=== PATIENT | female | born 1980 | race Hispanic/Latino ===

== ENCOUNTER 2018-07-15 08:42 | Emergency (ER) | payer OTHER | END 2018-07-15 10:36 | disposition home or self-care (01) | LOC: EDH 08:42 | DX: M54.5 Low back pain (principal); Z90.49 Acquired absence of other specified parts of digestive tract; Z72.0 Tobacco use ==

== ENCOUNTER 2018-12-26 19:01 | Emergency (ER) | payer OTHER | END 2018-12-26 19:34 | disposition home or self-care (01) | LOC: EDH 19:01 | DX: R42 Dizziness and giddiness (principal); R51 Headache; E11.9 Type 2 diabetes mellitus without complications; Z90.49 Acquired absence of other specified parts of digestive tract; Z98.51 Tubal ligation status; Z72.0 Tobacco use | CPT/HCPCS: 82948 ==

== ENCOUNTER 2019-09-23 18:21 | Inpatient (IN) | payer BC, MEDICAID ==
[~2019-09-23] VITALS: Ht 157.5 cm; Wt 49.0 kg
[2019-09-23] MEDS ORDERED: MORPHINE SULFATE 2 MG/ML 1ML SYG ONE ×2 (18:52→21:56)
[2019-09-23] MEDS ORDERED: ONDANSETRON ODT 4 MG TAB ONE (19:16)
[2019-09-23 19:24] LABS: BASOPHILS % (AUTO) 0.2 % (0.0-5.0); EOSINOPHILS % (AUTO) 0.2 % (0.0-8.0); HEMATOCRIT 22.2 % (36-48); LYMPHOCYTES % (AUTO) 21.8 % (21.0-51.0); MEAN CORPUSCULAR HEMOGLOBIN 22.8 pg (27.0-33.0); MEAN CORPUSCULAR HGB CONC 31.1 g/dL (32.0-36.0); MEAN CORPUSCULAR VOLUME 73.5 fL (79-99); MONOCYTES % (AUTO) 12.2 % (3.0-13.0); NEUTROPHILS % (AUTO) 65.3 % (40.0-77.0); PLATELET COUNT (AUTO) 488 K/uL (130-400); RED BLOOD CELL COUNT(AUTO) 3.02 MIL/uL (4.00-5.50); RED CELL DISTRIBUTION WIDTH 22.6 % (11.0-15.5)
[2019-09-23 19:30] LABS: APPEARANCE,URINE Cloudy (CLEAR); BILIRUBIN,URINE Negative (NEGATIVE); COLOR,URINE Yellow (YELLOW); GLUCOSE, URINE (UA) Negative (NEGATIVE); KETONES,URINE Negative (NEGATIVE); LEUKOCYTE ESTERASE ,URINE Moderate (NEGATIVE); NITRATE,URINE Negative (NEGATIVE); OCCULT BLOOD,URINE Negative (NEGATIVE); PROTEIN,URINE POS 1+ mg/dL (NEGATIVE); UROBILINOGEN,URINE 0.2 mg/dL (0.2-1.0)
[2019-09-23 19:31] LABS: CREATININE 0.8 mg/dL (0.5-1.5); POTASSIUM 3.9 mmol/L (3.5-5.1)
[2019-09-23 19:35] LABS: ALBUMIN 1.4 g/dL (3.5-5.0); BILIRUBIN,TOTAL 0.2 mg/dL (0.2-1.0); TOTAL PROTEIN, SERUM 7.4 g/dL (6.0-8.3)
[2019-09-23 19:40] LABS: INR 1.17 (0.85-1.15); PARTIAL THROMBOPLASTIN TIME 51.3 SEC (26.3-35.5); PROTHROMBIN TIME 12.2 SEC (9.6-11.6)
[2019-09-23 19:44] LABS: RBC,URINE 0-1 /HPF (0-1)
[2019-09-23 19:45] LABS: BACTERIA,URINE Few /HPF (None Seen); MUCUS,URINE Few LPF (None Seen); SQUAMOUS EPITHELIAL CELL,UR Few /HPF (0-2)
[2019-09-23] MEDS ORDERED: ACETAMINOPHEN EXTRA STRENGTH 500 MG TABLET ONE (19:46)
[2019-09-23] MEDS ORDERED: SODIUM CHLORIDE 0.9% 1000ML 1,000 ML IV ONE ×3 (19:59→23:37)
[2019-09-23] MEDS: ZOSYN 3.375GM+NS 50ML 50 ML IV SCH (21:33)
[2019-09-23] MEDS: SODIUM CHLORIDE 0.9% 1000ML 1,000 ML IV SCH (21:45)
[2019-09-23] MEDS ORDERED: ZOSYN 3.375GM+NS 50ML 50 ML IV ONE (21:56)
[2019-09-24] MEDS ORDERED: MORPHINE SULFATE 2 MG/ML 1ML SYG ONE (02:21)
[2019-09-24] MEDS ORDERED: ONDANSETRON HCL 4 MG/2 ML VIAL ONE (03:10)
[2019-09-24 05:00] VITALS: BP 106/73
[2019-09-24] MEDS: MORPHINE SULFATE 2 MG/ML 1ML SYG IVP PRN ×2 (06:36→10:28)
[2019-09-24] MEDS: ZOSYN 3.375GM+NS 50ML 50 ML IV SCH ×3 (07:24→20:08)
[2019-09-24 07:47] VITALS: BP 105/63
[2019-09-24] MEDS: SODIUM CHLORIDE 0.9% 1000ML 1,000 ML IV SCH ×2 (08:47→18:43)
[2019-09-24] MEDS: ACETAMINOPHEN 325 MG TAB PO PRN ×2 (08:50→16:30)
[2019-09-24] MEDS: ONDANSETRON HCL 4 MG/2 ML VIAL IVP PRN ×3 (10:32→21:06)
[2019-09-24 11:05] VITALS: BP 102/67
[2019-09-24 12:29] LABS: HEMATOCRIT 27.5 % (36-48)
[2019-09-24] MEDS ORDERED: PHARMACY COMMUNICATION MISC SCH (12:30)
--- NOTE | 2019-09-24 12:40 | NUR ---
Nutrition Intervention: Nutrition consult due to admission trigger. Pt. reports has Stg 4 Cervical Cancer and is receiving chemotherapy. Pt. states has lost 43#(29% of UBW) in 1 year due to decreased appetite. Pt. on Regular diet. Pt. reports p.o. intake varies. Spoke with pt. regarding supplementation with Ensure and pt. agreed to try. Labs reviewed(Alb 1.4, BG 83, Na 129). LBM: 09/24/2019, per pt. SR-21, elastic. Pt. educated on High Calorie High Protein diet and provided with education material. Pt. verbalized understanding. Recommendations: 1) Rec. Van. or [place] Ensure BID with B'fast and dinner meals. 2) High Calorie High protein diet education given to patient. 3) Continue to monitor pt's nutritional status. 4) Consult RD as nutrition concerns arise. Addendum: 09/24/19 at [address] Amended: Links added.
[2019-09-24] MEDS ORDERED: COMPOUND PO MISCELLANEOUS 1 EACH MISC MISC PRN (12:45)
[2019-09-24] MEDS: MAG HYDROX/AL HYDROX/SIMETH 30 ML, LIDOCAINE HCL 2% VISCOUS 30 ML, DIPHENHYDRAMINE HCL ... PO PRN ×6 (13:05→17:38)
[2019-09-24] MEDS: HYDROMORPHONE 1 MG/1 ML AMP IVP PRN ×3 (14:50→22:34)
[2019-09-24 16:22] VITALS: BP 112/74
--- NOTE | 2019-09-24 17:20 | NUR ---
INITIAL Patient lives with father, step mother and patient's 18 year old daughter. Emergency contact is father, Jovany Leone, [phone]. No home health but does have PHC with [facility] 24 1/2 hours a week. Father is her provider. Patient has no DME. Patient needs help with ADL's and does not drive. PCP is Dr. Francisco Bella. [facility] [place]. DCP is home. Addendum: 09/24/19 at 1723 by LESLIE SALAS SS Amended: Links added.
[2019-09-24 20:00] VITALS: BP 111/66
[2019-09-25] VITALS (7 sets, daily range): BP systolic 93–120; BP diastolic 61–78
[2019-09-25] MEDS: ACETAMINOPHEN 325 MG TAB PO PRN (00:13)
--- NOTE | 2019-09-25 00:35 | NUR ---
TEMP 103.0 DR. GABRIEL WAS NOTIFIED REGARDING PATIENT'S SPIKE IN TEMPERATURE. 103.0. NEW ORDERS RECEIVED, SEE ORDER HISTORY FOR DETAILS.
[2019-09-25] MEDS ORDERED: VANCOMYCIN 1GM+NS 250ML 250 ML IV SCH (00:45)
[2019-09-25] MEDS ORDERED: VANCOMYCIN PROTOCOL PER PHARMACY IV SCH (01:15)
[2019-09-25] MEDS: HYDROMORPHONE 1 MG/1 ML AMP IVP PRN ×5 (02:36→20:50)
[2019-09-25] MEDS: ZOSYN 3.375GM+NS 50ML 50 ML IV SCH ×3 (05:13→20:48)
[2019-09-25] MEDS: SODIUM CHLORIDE 0.9% 1000ML 1,000 ML IV SCH ×3 (05:14→23:19)
[2019-09-25] MEDS ORDERED: COMPOUND IV REFRIGERATED 1 EACH IVSOLN MISC PRN (06:30)
[2019-09-25] MEDS ORDERED: HYDROMORPHONE 1 MG/1 ML AMP IVP SCH (09:00)
[2019-09-25] MEDS: VANCOMYCIN 750MG + NS 250 ML IV SCH ×4 (09:22→20:48)
[2019-09-25] MEDS: ONDANSETRON HCL 4 MG/2 ML VIAL IVP PRN (11:04)
[2019-09-25] MEDS: METHYLPREDNISOLONE SOD SUCC 40MG/ML 1ML IVP SCH (14:28)
[2019-09-26] MEDS: HYDROMORPHONE 1 MG/1 ML AMP IVP PRN ×6 (01:21→22:25)
[2019-09-26 03:29] VITALS: BP 98/49
[2019-09-26] MEDS: ZOSYN 3.375GM+NS 50ML 50 ML IV SCH ×3 (05:31→21:28)
[2019-09-26 08:00] VITALS: BP 104/60
[2019-09-26] MEDS: SODIUM CHLORIDE 0.9% 1000ML 1,000 ML IV SCH (08:13)
[2019-09-26] MEDS: VANCOMYCIN 750MG + NS 250 ML IV SCH ×4 (08:13→21:30)
[2019-09-26 11:38] VITALS: BP 132/65
[2019-09-26] MEDS: METHYLPREDNISOLONE SOD SUCC 40MG/ML 1ML IVP SCH (13:44)
[2019-09-26 15:46] VITALS: BP 111/64
[2019-09-26] MEDS: ONDANSETRON HCL 4 MG/2 ML VIAL IVP PRN (17:43)
[2019-09-26 19:41] VITALS: BP 106/70
[2019-09-26 23:33] VITALS: BP 98/67
[2019-09-26] MEDS: DIPHENHYDRAMINE HCL 25 MG CAPSULE PO PRN (23:47)
[2019-09-27] MEDS: HYDROMORPHONE 1 MG/1 ML AMP IVP PRN ×5 (03:09→21:07)
[2019-09-27] MEDS: ZOSYN 3.375GM+NS 50ML 50 ML IV SCH ×3 (03:10→20:28)
[2019-09-27 03:30] VITALS: BP 107/77
[2019-09-27] MEDS: SODIUM CHLORIDE 0.9% 1000ML 1,000 ML IV SCH ×2 (06:46→16:39)
[2019-09-27] MEDS: ONDANSETRON HCL 4 MG/2 ML VIAL IVP PRN ×2 (08:47→12:36)
[2019-09-27] MEDS: VANCOMYCIN 750MG + NS 250 ML IV SCH ×4 (08:47→21:48)
[2019-09-27 09:00] VITALS: BP 107/69
[2019-09-27 11:45] VITALS: BP 114/66
[2019-09-27] MEDS: METHYLPREDNISOLONE SOD SUCC 40MG/ML 1ML IVP SCH (12:36)
[2019-09-27 16:11] VITALS: BP 120/80
[2019-09-27 20:49] VITALS: BP 108/75
[2019-09-27] MEDS: DIPHENHYDRAMINE HCL 25 MG CAPSULE PO PRN (21:07)
[2019-09-28 00:23] VITALS: BP 117/74
[2019-09-28] MEDS: HYDROMORPHONE 1 MG/1 ML AMP IVP PRN ×8 (01:23→23:44)
[2019-09-28 04:47] VITALS: BP 121/77
[2019-09-28] MEDS: ZOSYN 3.375GM+NS 50ML 50 ML IV SCH ×3 (05:33→21:25)
[2019-09-28] MEDS: ONDANSETRON HCL 4 MG/2 ML VIAL IVP PRN (05:39)
[2019-09-28 08:00] VITALS: BP 117/75
[2019-09-28] MEDS: VANCOMYCIN 1GM+NS 250ML 250 ML IV SCH ×2 (09:37→21:24)
[2019-09-28 11:56] VITALS: BP 118/90
[2019-09-28] MEDS ORDERED: HYDROMORPHONE HCL 2 MG/ML VIAL IVP PRN (12:45)
[2019-09-28] MEDS: METHYLPREDNISOLONE SOD SUCC 40MG/ML 1ML IVP SCH (12:50)
[2019-09-28 16:00] VITALS: BP 124/69
[2019-09-28 20:00] VITALS: BP 99/74
[2019-09-28] MEDS: SODIUM CHLORIDE 0.9% 1000ML 1,000 ML IV SCH (21:24)
[2019-09-28] MEDS: DIPHENHYDRAMINE HCL 25 MG CAPSULE PO PRN (23:43)
[2019-09-29] VITALS: BP 106/65
[2019-09-29] MEDS: ONDANSETRON HCL 4 MG/2 ML VIAL IVP PRN (01:25)
[2019-09-29] MEDS: HYDROMORPHONE 1 MG/1 ML AMP IVP PRN ×9 (02:37→19:55)
[2019-09-29 04:00] VITALS: BP 102/66
[2019-09-29] MEDS: DIPHENHYDRAMINE HCL 25 MG CAPSULE PO PRN ×3 (04:50→12:42)
[2019-09-29 08:00] VITALS: BP 118/79
[2019-09-29] MEDS: SODIUM CHLORIDE 0.9% 1000ML 1,000 ML IV SCH (08:36)
[2019-09-29] MEDS ORDERED: MORPHINE SULFATE 15 MG TABLET.SA PO SCH (10:00)
--- NOTE | 2019-09-29 10:49 | NUR ---
HAD NOTIFIED RAMESH REGARDING PAITENT C/O OF PAIN WITHIN 30 MIN OF DILAUDED 2MG PRN DOSE AND PER PATIENT STATES PAIN MED STILL IS NOT WORKING FOR HER. PER MD ADD MSCONT 30MG PO Q 12 WITH FIRST DOSE NOW . WILL OCNT TO MONITOR
[2019-09-29 12:00] VITALS: BP 108/75
[2019-09-29] MEDS: METHYLPREDNISOLONE SOD SUCC 40MG/ML 1ML IVP SCH (12:42)
--- NOTE | 2019-09-29 14:55 | NUR ---
PALLIATIVE CARE CONSULT Beata spoke to pt regarding Dr Fregoso request for Dr Martinez to see pt. Sw educated pt on Dr Martinez's role and she is agreeable to meeting with him. Pt states she is in an indescribable amount of pain to back and leg. Pt states she knows her cervical cancer has spread to her lungs, but states she really does not know much about her cancer. I want him to tell me what is really going on. dr Martinez to meet with pt at 4 today.
--- NOTE | 2019-09-29 15:47 | NUR ---
[facility] FOLLOW UP MALNUTRITION NUTRITION EDUCATION COMPLETED ON 09/23. PT IS TOLERATING PO AND IS DRINKING 100% ENSURE. SKIN IS INTACT. LABS REVIEWED. MEDS REVIEWED. CONTINUE CURRENT DIET AND ORAL SUPPLEMENTS MONITOR WEIGHT CHANGES AND PO INTAKE Addendum: 09/29/19 at [address] Amended: Links added.
[2019-09-29 16:00] VITALS: BP 105/63
--- NOTE | 2019-09-29 17:30 | NUR ---
DR HANNA Sw present when Dr Hanna met with pt and her family at bedside. Pt consented to discussion with family present. Dr Hanna [place] [facility] [place] [facility] [place] and explained to pt and family about the cancer pt has, the size of her tumors and current condition. Dr Hanna explained pt's 2 options treatment vs hospice. Pt has not had treatment with Dr Giraldo and Dr Hanna strongly encouraged pt and family to have a conversation with Dr Giraldo regarding a treatment plan. Dr Hanna stressed to everyone, the importance of pt's compliance with treatment, MD visits, and remaining drug free. dr Hanna discussed danger of mixing street drugs and alcohol with chemo and pain medication. 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 Pt wants to continue treatment if dr Giraldo feels there is an option for treatment. Dr Hanna made changes to pain medication and discussed changes with nurse Rubio. Beata to follow and assist as needed
[2019-09-29] MEDS: SENNOSIDES 8.6 MG TABLET PO SCH (19:54)
[2019-09-29] MEDS: LACTULOSE 20 GM/30 ML UDCUP PO PRN (19:56)
[2019-09-29 20:00] VITALS: BP 100/65
[2019-09-29] MEDS: MORPHINE SULFATE 15 MG TABLET.SA PO SCH (22:23)
[2019-09-30] VITALS: BP 106/66
[2019-09-30] MEDS: HYDROMORPHONE 1 MG/1 ML AMP IVP PRN ×7 (01:23→20:44)
[2019-09-30] MEDS: MORPHINE SULFATE IR 15 MG TAB 15 MG TABLET PO PRN ×4 (03:05→23:48)
[2019-09-30 04:00] VITALS: BP 135/93
[2019-09-30] MEDS: SODIUM CHLORIDE 0.9% 1000ML 1,000 ML IV SCH ×2 (05:40→17:34)
[2019-09-30] MEDS: MORPHINE SULFATE 15 MG TABLET.SA PO SCH ×3 (06:54→22:22)
[2019-09-30 08:14] VITALS: BP 117/69
[2019-09-30] MEDS: ONDANSETRON HCL 4 MG/2 ML VIAL IVP PRN (09:28)
[2019-09-30] MEDS: LACTULOSE 20 GM/30 ML UDCUP PO PRN (09:28)
[2019-09-30] MEDS: SENNOSIDES 8.6 MG TABLET PO SCH ×2 (09:28→20:39)
--- NOTE | 2019-09-30 10:33 | NUR ---
Dr Martinez f/u Sw visited with pt this am who was in bathroom and you could hear her crying and yelling from pain. Pt came out of bathroom and I helped her to bed. Pt crying and saying the pain was unbearable. Pt stated she wanted to throw up, SW provided her with dish to use and place wet rag on back of her neck to cool her. Pt with dry heaving. Sw called nurse Marlys who was getting pain medication for pt. Pt now lying in bed crying and moaning of pain. Sw recd call from Dr Martinez who was following up on pt. Informed him of above. Dr Martinez to come by. Dr Martinez arrived and spoke to pt regarding medications given last night and pain at this time. Pt crying and anxious. Dr Martinez made changes to medications and update nurse Frankel. CM aware
[2019-09-30] MEDS: HYDROXYZINE HCL 25 MG TABLET PO PRN ×2 (11:08→22:21)
[2019-09-30 11:23] VITALS: BP 108/72
[2019-09-30] MEDS: METHYLPREDNISOLONE SOD SUCC 40MG/ML 1ML IVP SCH (14:33)
[2019-09-30 16:17] VITALS: BP 112/81
[2019-09-30] MEDS: CLOTRIMAZOLE 10 MG TROCHE MM SCH ×2 (18:41→23:48)
[2019-09-30 20:00] VITALS: BP 111/55
[2019-09-30] MEDS: ACETAMINOPHEN 325 MG TAB PO PRN (20:40)
[2019-10-01] VITALS: BP 121/59
[2019-10-01] MEDS: HYDROMORPHONE 1 MG/1 ML AMP IVP PRN ×10 (00:11→23:51)
[2019-10-01] MEDS: SODIUM CHLORIDE 0.9% 1000ML 1,000 ML IV SCH ×3 (03:32→19:40)
[2019-10-01 04:00] VITALS: BP 103/65
[2019-10-01] MEDS: MORPHINE SULFATE IR 15 MG TAB 15 MG TABLET PO PRN ×3 (04:28→19:40)
[2019-10-01] MEDS: CLOTRIMAZOLE 10 MG TROCHE MM SCH ×4 (06:22→23:51)
[2019-10-01] MEDS: MORPHINE SULFATE 15 MG TABLET.SA PO SCH ×3 (06:23→22:04)
[2019-10-01 08:20] VITALS: BP 104/68
[2019-10-01] MEDS: SENNOSIDES 8.6 MG TABLET PO SCH ×2 (10:51→19:34)
[2019-10-01 11:53] VITALS: BP 100/68
[2019-10-01] MEDS: METHYLPREDNISOLONE SOD SUCC 40MG/ML 1ML IVP SCH (13:05)
--- NOTE | 2019-10-01 15:30 | NUR ---
DR. HANNA MD HERE TO SEE PATIENT. MD MADE ADJUSTMENTS TO SCHEDULED PO AND PRN PO PAIN MEDICATIONS. MD SAID TO KEEP IV PAIN MEDICATION THE SAME. DR. HANNA STATES IF PAIN CONTROLLED WITH PO PAIN MEDICATIONS, POSSIBLE DISCHARGE PLAN FOR TOMORROW.
[2019-10-01 16:06] VITALS: BP 109/68
[2019-10-01] MEDS: HYDROXYZINE HCL 25 MG TABLET PO PRN ×2 (18:11→22:03)
[2019-10-01] MEDS: ONDANSETRON HCL 4 MG/2 ML VIAL IVP PRN (19:33)
[2019-10-01 20:00] VITALS: BP 108/63
[2019-10-01] MEDS: DIPHENHYDRAMINE HCL 25 MG CAPSULE PO PRN (23:12)
[2019-10-02] VITALS: BP 99/66
[2019-10-02] MEDS: MORPHINE SULFATE IR 15 MG TAB 15 MG TABLET PO PRN ×4 (01:40→17:23)
[2019-10-02] MEDS: DIPHENHYDRAMINE HCL 25 MG CAPSULE PO PRN (03:13)
[2019-10-02] MEDS: HYDROMORPHONE 1 MG/1 ML AMP IVP PRN ×4 (03:21→20:07)
[2019-10-02 04:00] VITALS: BP 114/67
[2019-10-02] MEDS: SODIUM CHLORIDE 0.9% 1000ML 1,000 ML IV SCH ×2 (05:45→15:45)
[2019-10-02] MEDS: CLOTRIMAZOLE 10 MG TROCHE MM SCH ×4 (05:55→23:16)
[2019-10-02] MEDS: MORPHINE SULFATE 15 MG TABLET.SA PO SCH ×3 (05:55→21:43)
[2019-10-02] MEDS: HYDROXYZINE HCL 25 MG TABLET PO PRN ×3 (05:57→23:15)
[2019-10-02 08:00] VITALS: BP 109/73
[2019-10-02] MEDS: SENNOSIDES 8.6 MG TABLET PO SCH ×2 (10:27→20:08)
[2019-10-02 12:00] VITALS: BP 111/72
[2019-10-02] MEDS: METHYLPREDNISOLONE SOD SUCC 40MG/ML 1ML IVP SCH (13:22)
--- NOTE | 2019-10-02 16:01 | NUR ---
Dr Martinez met with pt and discussed pain and medication. Dr Martinez made changes to medication and recommended pt stay 1 more night to see how changes work. Cm aware of this
[2019-10-02 16:03] VITALS: BP 104/55
--- NOTE | 2019-10-02 16:30 | NUR ---
call [facility] pharmacy if the prescription but they don't carry the prescription. I call the office of Dr. Giraldo to tell the nurse to send the prescription to [facility] pharmacy. the Nurse from the office verbalized that she will call the prescription to [facility] [place].
--- NOTE | 2019-10-02 17:53 | NUR ---
Dr. Perez made a rounds and verbalized that the patient can not be discharge at this time because he will dose up the pain medication since the patient still not control with her pain. He ordered the morphine ER from 60 mg to [address] stratton through his answering service to notify him about dr. perez's order.
[2019-10-02 20:00] VITALS: BP 103/67
[2019-10-03] VITALS (7 sets, daily range): BP systolic 99–127; BP diastolic 61–78
[2019-10-03] MEDS: HYDROMORPHONE 1 MG/1 ML AMP IVP PRN ×3 (00:05→22:06)
[2019-10-03] MEDS: MORPHINE SULFATE IR 15 MG TAB 15 MG TABLET PO PRN ×3 (02:18→09:40)
[2019-10-03] MEDS: SODIUM CHLORIDE 0.9% 1000ML 1,000 ML IV SCH ×3 (04:38→21:22)
[2019-10-03] MEDS: DIPHENHYDRAMINE HCL 25 MG CAPSULE PO PRN (04:38)
[2019-10-03] MEDS: MORPHINE SULFATE 15 MG TABLET.SA PO SCH ×3 (05:55→21:21)
[2019-10-03] MEDS: CLOTRIMAZOLE 10 MG TROCHE MM SCH ×5 (05:56→22:59)
[2019-10-03] MEDS: SENNOSIDES 8.6 MG TABLET PO SCH ×2 (08:51→21:21)
[2019-10-03] MEDS: HYDROXYZINE HCL 25 MG TABLET PO PRN ×3 (08:51→21:20)
[2019-10-03] MEDS: METHYLPREDNISOLONE SOD SUCC 40MG/ML 1ML IVP SCH (12:10)
[2019-10-03] MEDS ORDERED: FENTANYL 100 MCG/HR PATCH TD SCH (12:30)
--- NOTE | 2019-10-03 13:49 | NUR ---
dr. Martinez call me on the phone and ask me if i can call the [facility] if they have the morphine 100 mg PO and the morphine 30 mg IR. I call [facility] [place] and they verbalized that they don't have the morphine 100 mg po and the morphine 30 IR.
--- NOTE | 2019-10-03 14:16 | NUR ---
I call dr. perez to inform his that [facility] don't have the morphine and he said to call the [facility] and [facility] but these pharmacy are close and will be open on Saturday. I call dr. perez and informed him this. He verbalized that he will put order for the fentanyl patch and the patient will not be discharge till saturday since there will be no pain medication. will page dr. stratton.
--- NOTE | 2019-10-03 17:46 | NUR ---
paged dr. stratton through answering service about the order of dr. perez. will wait for the call back.
[2019-10-04] MEDS: HYDROMORPHONE HCL 2 MG TAB PO PRN ×2 (02:00→11:52)
[2019-10-04] MEDS: HYDROXYZINE HCL 25 MG TABLET PO PRN ×2 (02:05→06:47)
[2019-10-04] MEDS: HYDROMORPHONE 1 MG/1 ML AMP IVP PRN (03:58)
[2019-10-04 04:02] VITALS: BP 109/67
[2019-10-04] MEDS: DIPHENHYDRAMINE HCL 25 MG CAPSULE PO PRN ×2 (05:13→09:55)
[2019-10-04 07:37] VITALS: BP 94/67
[2019-10-04] MEDS: SENNOSIDES 8.6 MG TABLET PO SCH (09:40)
--- NOTE | 2019-10-04 10:21 | NUR ---
CALL DR. HANNA ON HIS CELLPHONE TO ASK IF THE PATIENT WILL BE DISCHARGE TODAY. HE VERBALIZED IF THE PAIN IS CONTROLLED WITH THE FENTANYL PATCH WITH THE DILUADID PO AND IF THE [facility] WILL HAVE THE THE DILAUDID 8 MG PO THEN THE PATIENT CAN BE DISCHARGE. I VERBALIZED TO DR. HANNA THAT THE PAIN IS MUCH CONTROL AND USUALLY BY THIS TIME SHE WOULD ALREADY HAVE ASKED HER SECOND PAIN MEDICATION I HAVE HAD HER FOR THE PAST 2 DAYS AND SO FAR SHE HASN'T ASK ME FOR PAIN MEDICATION UP TO THIS TIME. HE ASK ME TO CALL THE B PHARMACY IN THE [facility] HERE IN [place] IF THEY HAVE THE FENTANYL PATCH 100MG AND THE DILUADID 8 MG SO HE CAN SEND THE PRESCRIPTION. I ALSO DISCUSSED WITH DR. HANNA THAT DR. GABRIEL WAS UPSET THAT THE PATIENT WAS NOT DISCHARGED. DR. HANNA VERBALIZED THAT THE PATIENT CANNOT BE DISCHARGE BECAUSE THE PAIN WAS NOT CONTROLLED YESTERDAY AND THAT THE PAIN MEDICATION IS NOT IN THE [facility] AND [facility]. HE VERBALIZED THAT THE PATIENT WILL JUST BE BACK IN THE ER SINCE THE PATIENT WILL NOT BE ABLE TO HAVE HER PAIN MEDICATION. SO I PROCEED TO CALL THE [facility] AND HAS CONFIRMED THAT THEY HAVE FENTANYL 100 MG AND DILAUDID 8 MG PO AND WILL CALL BACK TO INFORM DR. HANNA ABOUT THIS.
[2019-10-04] MEDS: METHYLPREDNISOLONE SOD SUCC 40MG/ML 1ML IVP SCH (11:47)
[2019-10-04] MEDS: CLOTRIMAZOLE 10 MG TROCHE MM SCH (11:47)
[2019-10-04 12:13] VITALS: BP 122/78
--- NOTE | 2019-10-04 12:53 | NUR ---
CALL DR. HANNA AT 1120 TO INFORM HIM THAT I HAVE CALL B PHARMACY IN [facility] AND THEY CONFIRMED THAT THEY HAVE THE FENTANYL PATCH 100 MG AND THE DILAUDID 8 MG PO AND NO ANSWER. I CALL DR. HANNA FOR SEVERAL TIMES TO INFORM HIM ABOUT THIS AND ALSO INFORMED CHARGE NURSE THAT I CAN DR. HANNA SEVERAL TIMES. CHARGE NURSE FRANCINE VERBALIZED THAT SHE TEXTED DR. HANNA WELL.
== END 2019-10-04 14:30 | disposition home or self-care (01) | DRG 720 ==
LOC: EDH 18:21 → EDHIP 18:22 → 3AH 09-24 04:06
PROVIDERS: ADMIT Internal Medicine Hematology & Oncology; ATTEND Internal Medicine Hematology & Oncology
PROC: 30233N1 Transfusion of Nonautologous Red Blood Cells into Peripheral Vein, Percutaneous Approach (ICD-10-PCS; principal; 2019-09-24)
DX: A41.9 Sepsis, unspecified organism (principal); E41 Nutritional marasmus; C79.9 Secondary malignant neoplasm of unspecified site; C53.9 Malignant neoplasm of cervix uteri, unspecified; E43 Unspecified severe protein-calorie malnutrition; E11.9 Type 2 diabetes mellitus without complications; D64.9 Anemia, unspecified; F14.90 Cocaine use, unspecified, uncomplicated; G89.3 Neoplasm related pain (acute) (chronic); M54.9 Dorsalgia, unspecified; K59.03 Drug induced constipation; R53.81 Other malaise; F41.9 Anxiety disorder, unspecified; L29.9 Pruritus, unspecified; T40.605A Adverse effect of unspecified narcotics, initial encounter; T40.2X5A Adverse effect of other opioids, initial encounter; Z68.1 Body mass index [BMI] 19.9 or less, adult; F17.200 Nicotine dependence, unspecified, uncomplicated; Z91.19 Patient's noncompliance with other medical treatment and regimen; Z92.21 Personal history of antineoplastic chemotherapy; Z59.0 Homelessness; Y92.89 Other specified places as the place of occurrence of the external cause; Z90.49 Acquired absence of other specified parts of digestive tract
CPT/HCPCS: 36415; 36430; 80053; 80202; 81001; 82948; 83605; 85014; 85018; 85025; 85610; 85730; 86850; 86900; 86901; 86922; 87040; 87088; G0378; J1170; J2405; J2543; J2920; J3370; J7030; P9016; Q0163

== ENCOUNTER 2019-10-24 09:54 | Inpatient (IN) | payer BC, MEDICAID ==
[~2019-10-24] VITALS: Ht 157.5 cm; Wt 45.8 kg
[2019-10-24] MEDS ORDERED: SODIUM CHLORIDE 0.9% 1000ML 1,000 ML IV ONE (10:27)
[2019-10-24] MEDS ORDERED: ONDANSETRON HCL 4 MG/2 ML VIAL ONE (10:28)
[2019-10-24 10:35] LABS: BASOPHILS % (AUTO) 0.3 % (0.0-5.0); EOSINOPHILS % (AUTO) 0.2 % (0.0-8.0); HEMATOCRIT 30.3 % (36-48); LYMPHOCYTES % (AUTO) 30.5 % (21.0-51.0); MEAN CORPUSCULAR HEMOGLOBIN 24.1 pg (27.0-33.0); MEAN CORPUSCULAR HGB CONC 31.4 g/dL (32.0-36.0); MEAN CORPUSCULAR VOLUME 76.9 fL (79-99); MONOCYTES % (AUTO) 8.7 % (3.0-13.0); NEUTROPHILS % (AUTO) 59.6 % (40.0-77.0); PLATELET COUNT (AUTO) 319 K/uL (130-400); RED BLOOD CELL COUNT(AUTO) 3.94 MIL/uL (4.00-5.50); RED CELL DISTRIBUTION WIDTH 22.3 % (11.0-15.5); WHITE BLOOD COUNT (AUTO) 6.1 K/uL (4.8-10.8)
[2019-10-24 10:36] LABS: ALANINE AMINOTRANSFERASE 120 U/L (12-78); ALBUMIN 1.5 g/dL (3.5-5.0); ASPARTATE AMINOTRANSFERASE 61 U/L (10-37); BILIRUBIN,TOTAL 0.3 mg/dL (0.2-1.0); CARBON DIOXIDE 28 mmol/L (21-32); CHLORIDE 96 mmol/L (101-111); CREATININE 0.8 mg/dL (0.5-1.5); GLOMERULAR FILTR. RATE CALC 85 mL/min (>60); GLUCOSE,RANDOM 73 mg/dL (70-105); POTASSIUM 3.6 mmol/L (3.5-5.1); SODIUM SERUM 133 mmol/L (136-145); UREA NITROGEN, BLOOD 18 mg/dL (7-18)
[2019-10-24 10:37] LABS: LIPASE < 50 U/L (114-286)
[2019-10-24] MEDS ORDERED: HYDROMORPHONE 1 MG/1 ML AMP ONE ×2 (11:24→16:14)
[2019-10-24 11:28] LABS: APPEARANCE,URINE Cloudy (CLEAR); BILIRUBIN,URINE Negative (NEGATIVE); COLOR,URINE Yellow (YELLOW); GLUCOSE, URINE (UA) Negative (NEGATIVE); KETONES,URINE Trace mg/dL (NEGATIVE); LEUKOCYTE ESTERASE ,URINE Large (NEGATIVE); NITRATE,URINE Positive (NEGATIVE); OCCULT BLOOD,URINE Small (NEGATIVE); PROTEIN,URINE POS 1+ mg/dL (NEGATIVE)
[2019-10-24 12:09] LABS: SQUAMOUS EPITHELIAL CELL,UR Few /HPF (0-2)
[2019-10-24 12:10] LABS: BACTERIA,URINE Moderate /HPF (None Seen); WBC,URINE 26-50 /HPF (0-1)
[2019-10-24] MEDS ORDERED: ZOSYN 3.375GM+NS 50ML 50 ML IV ONE (12:38)
[2019-10-24] MEDS ORDERED: ACETAMINOPHEN 325 MG TAB ONE (17:19)
[2019-10-24] MEDS: ACETAMINOPHEN 325 MG TAB PO PRN (17:27)
[2019-10-24] MEDS: SODIUM CHLORIDE 0.9% 1000ML 1,000 ML IV SCH (18:51)
[2019-10-24] MEDS: HYDROMORPHONE HCL 2 MG/ML VIAL IVP PRN ×2 (18:57→22:53)
[2019-10-24] MEDS: ONDANSETRON HCL 4 MG/2 ML VIAL IVP PRN ×2 (19:05→22:54)
[2019-10-24 19:42] VITALS: BP 100/59
[2019-10-24] MEDS: MORPHINE SULFATE 15 MG TABLET.SA PO SCH (20:17)
[2019-10-24] MEDS: ZOSYN 3.375GM+NS 50ML 50 ML IV SCH (20:17)
[2019-10-24] MEDS: INSULIN R PO SS1/2 SQ SCH (20:25)
[2019-10-24 23:50] VITALS: BP 103/58
--- NOTE | 2019-10-25 00:38 | NUR ---
Patient rechecked temp was 100.3. Addendum: 10/26/19 at 0644 by AIME BOB RN RN Amended: Links added.
[2019-10-25] MEDS: SODIUM CHLORIDE 0.9% 1000ML 1,000 ML IV SCH ×3 (01:15→20:26)
--- NOTE | 2019-10-25 02:28 | NUR ---
IV IV TO RIGHT FOREARM INFILTRATED. REMOVED PIV, CATHETER INTACT. INSERTED A 22G TO RIGHT UPPER ARM. PIV FLUSHES WELL. SECURED WITH TEGADERM AND TAPE. IV FLUIDS RESUMED. BED LOCKED IN LOWEST POSITION. CALL LIGHT WITHIN REACH. PT REPORTS NAUSEA, INFORMED HER THE NAUSEA MEDICATION IS NOT AVAILABLE D/T TIME BEING REQUESTED IS TOO SOON. ONCE AVAILABLE I WILL FOLLOW UP WITH PT IF IT IS STILL NEEDED. Addendum: 10/25/19 at 0232 by LOYDA SOLIMAN RN RN Amended: Links added.
[2019-10-25 03:56] VITALS: BP 110/68
[2019-10-25] MEDS: HYDROMORPHONE HCL 2 MG/ML VIAL IVP PRN ×3 (04:05→12:00)
[2019-10-25] MEDS: ONDANSETRON HCL 4 MG/2 ML VIAL IVP PRN ×5 (04:05→23:18)
[2019-10-25] MEDS: ZOSYN 3.375GM+NS 50ML 50 ML IV SCH ×3 (05:10→20:25)
[2019-10-25] MEDS: INSULIN R PO SS1/2 SQ SCH ×4 (05:48→20:25)
[2019-10-25 08:38] VITALS: BP 99/68
[2019-10-25] MEDS: MORPHINE SULFATE 15 MG TABLET.SA PO SCH ×3 (09:39→20:21)
[2019-10-25] MEDS: ACETAMINOPHEN 325 MG TAB PO PRN ×2 (12:09→23:18)
[2019-10-25 13:20] VITALS: BP 95/50
[2019-10-25] MEDS: HYDROMORPHONE 1 MG/1 ML AMP IVP PRN (16:12)
[2019-10-25 16:51] VITALS: BP 94/54
--- NOTE | 2019-10-25 19:30 | NUR ---
cm note lives with mother and father and son, ambulates with cane, has provider 2hrs daily. dad transports to [place] as needed. dc [place]. Addendum: 10/25/19 at 1933 by MAGNOLIA SHAY CM Amended: Links added.
[2019-10-25 20:20] VITALS: BP 98/60
[2019-10-25 23:40] VITALS: BP 118/77
--- NOTE | 2019-10-25 23:45 | NUR ---
Patient noted with a temp of 102.7. Medicated as per MARS with Tylenol 650mg po. will recheck in 1 hour. Patient awake and alert in bed watching TV. No complaints of pain voiced at this time. vitals stable. Call light within reach. Will continue to be observed. Addendum: 10/25/19 at 1278 by AIME BOB RN RN Amended: Links added.
[2019-10-26 03:32] VITALS: BP 96/50
[2019-10-26] MEDS: ZOSYN 3.375GM+NS 50ML 50 ML IV SCH ×3 (03:48→20:15)
[2019-10-26] MEDS: MORPHINE SULFATE 15 MG TABLET.SA PO SCH ×4 (03:49→20:34)
[2019-10-26] MEDS: HYDROMORPHONE 1 MG/1 ML AMP IVP PRN ×3 (04:27→20:17)
[2019-10-26 05:29] LABS: HEMATOCRIT 22.3 % (36-48); MEAN CORPUSCULAR HEMOGLOBIN 23.2 pg (27.0-33.0); MEAN CORPUSCULAR HGB CONC 29.6 g/dL (32.0-36.0); MEAN CORPUSCULAR VOLUME 78.2 fL (79-99); PLATELET COUNT (AUTO) 198 K/uL (130-400); RED BLOOD CELL COUNT(AUTO) 2.85 MIL/uL (4.00-5.50); RED CELL DISTRIBUTION WIDTH 22.3 % (11.0-15.5); WHITE BLOOD COUNT (AUTO) 8.2 K/uL (4.8-10.8)
[2019-10-26 05:43] LABS: CREATININE 0.8 mg/dL (0.5-1.5); POTASSIUM 3.9 mmol/L (3.5-5.1)
[2019-10-26 05:44] LABS: BAND NEUTROPHILS % (MANUAL) 1 % (0-2); LYMPHOCYTES % (MANUAL) 28 % (22-44); MAN.DIFF COMMENT-IMPRESSION MANUAL DIFFERENTIAL; MONOCYTES % (MANUAL) 5 % (2-9); SEGMENTED NEUTROPHILS % 66 % (40-70)
[2019-10-26 05:45] LABS: PLATELET MORPHOLOGY COMMENT ADEQUATE
--- NOTE | 2019-10-26 06:00 | NUR ---
HGB 6.6 CALLED AND AWARE OF HGB 6.6. NEW ORDERS RECEIVED TO TYPE AND CROSS, TRANSFUSE 1 UNIT OF PACKED RBCS AND GIVE TYLENOL 650MG PO BEFORE TRANSFUSION. ORDERS RECEIVED AND CARRIED OUT. PATIENT AWARE. CONSENT SIGNED FOR BLOOD TRANSFUSION. NO SIGNS OF DISTRESS NOTED. CALL LIGHT WITHIN REACH. WILL CONTINUE TO BE OBSERVED. Addendum: 10/26/19 at 0650 by AIME BOB RN RN Amended: Links added.
[2019-10-26] MEDS: INSULIN R PO SS1/2 SQ SCH ×4 (06:29→21:00)
[2019-10-26] MEDS: ONDANSETRON HCL 4 MG/2 ML VIAL IVP PRN ×3 (07:04→20:15)
[2019-10-26 07:30] VITALS: BP 103/64
[2019-10-26] MEDS: SODIUM CHLORIDE 0.9% 1000ML 1,000 ML IV SCH ×2 (08:09→17:44)
--- NOTE | 2019-10-26 09:15 | NUR ---
DR. GABRIEL SPOKE TO DR. GABRIEL TO CHANGE MS CONTIN FROM Q8 TO Q 6 HRS.
[2019-10-26 11:00] VITALS: BP 106/69
[2019-10-26] MEDS: ACETAMINOPHEN 325 MG TAB PO PRN ×2 (11:00→17:26)
--- NOTE | 2019-10-26 11:14 | NUR ---
BS PT IS REFUSING BS CHECKS, REFUSAL FORM IN CHART.
--- NOTE | 2019-10-26 11:15 | NUR ---
TEMP 101.2 ORAL 650MG TYLENOL GIVEN
[2019-10-26] MEDS ORDERED: FENTANYL 75 MCG/HR PATCH TD ONE (12:08)
[2019-10-26] MEDS ORDERED: FENTANYL 75 MCG/HR PATCH TD SCH (12:15)
--- NOTE | 2019-10-26 12:15 | NUR ---
FENTANYL PATCH 75MCG TD TO LEFT SHOULDER
--- NOTE | 2019-10-26 14:30 | NUR ---
BLOOD 1ST UNIT OF BLOOD STARTED 125 ML/HR
--- NOTE | 2019-10-26 14:58 | NUR ---
RD NOTIFICATION PT ADMITTED WITH INTRACTABLE PAIN, CERVICAL CA. PT WITH HIGH MALNUTRITION RISK WITH MILD-MODERATE FAT/MUSCLE LOSS. PT WITH GOOD APPETITE (100%). RECOMMEND 30ML PROMOD TID, GLUCERNA QD. PENDING BLOOD TRANSFUSION. NOTED LBM 10/24/19, TARRY STOOLS POSSIBLY RELATED CERVICAL CA. RD TO CONTINUE TO MONITOR. PLEASE NOTIFY ADDITIONAL NUTRITION CONCERNS ARISE. THANK YOU. Addendum: 10/26/19 at [address] Amended: Links added.
[2019-10-26 16:00] VITALS: BP 94/61
[2019-10-26 20:00] VITALS: BP 100/63
[2019-10-26] MEDS: DiphenhydrAMINE HCL 50 MG/ML VIAL IV PRN (22:06)
[2019-10-27] VITALS: BP 115/72
[2019-10-27] MEDS: ONDANSETRON HCL 4 MG/2 ML VIAL IVP PRN ×4 (02:07→19:41)
[2019-10-27] MEDS: HYDROMORPHONE 1 MG/1 ML AMP IVP PRN (02:08)
[2019-10-27] MEDS: SODIUM CHLORIDE 0.9% 1000ML 1,000 ML IV SCH ×2 (03:15→13:48)
[2019-10-27] MEDS: MORPHINE SULFATE 15 MG TABLET.SA PO SCH ×4 (03:27→21:01)
[2019-10-27] MEDS: DiphenhydrAMINE HCL 50 MG/ML VIAL IV PRN ×4 (03:32→21:00)
[2019-10-27 04:00] VITALS: BP 120/75
[2019-10-27] MEDS: ZOSYN 3.375GM+NS 50ML 50 ML IV SCH ×3 (04:55→21:01)
[2019-10-27 07:30] VITALS: BP 103/54
[2019-10-27] MEDS: INSULIN R PO SS1/2 SQ SCH ×4 (07:30→21:00)
[2019-10-27] MEDS: ACETAMINOPHEN 325 MG TAB PO PRN ×2 (08:03→10:58)
[2019-10-27 08:48] LABS: HEMATOCRIT 28.1 % (36-48); MEAN CORPUSCULAR HEMOGLOBIN 25.8 pg (27.0-33.0); MEAN CORPUSCULAR HGB CONC 32.7 g/dL (32.0-36.0); MEAN CORPUSCULAR VOLUME 78.9 fL (79-99); PLATELET COUNT (AUTO) 190 K/uL (130-400); RED BLOOD CELL COUNT(AUTO) 3.56 MIL/uL (4.00-5.50); RED CELL DISTRIBUTION WIDTH 19.9 % (11.0-15.5); WHITE BLOOD COUNT (AUTO) 7.9 K/uL (4.8-10.8)
[2019-10-27 09:35] LABS: LYMPHOCYTES % (MANUAL) 22 % (22-44); MAN.DIFF COMMENT-IMPRESSION MANUAL DIFFERENTIAL; MONOCYTES % (MANUAL) 9 % (2-9); PLATELET MORPHOLOGY COMMENT ADEQUATE; SEGMENTED NEUTROPHILS % 69 % (40-70)
[2019-10-27 11:00] VITALS: BP 99/60
[2019-10-27] MEDS: HYDROMORPHONE HCL 2 MG TAB PO SCH ×3 (12:37→19:38)
[2019-10-27 16:00] VITALS: BP 105/61
[2019-10-27 20:14] VITALS: BP 110/67
--- NOTE | 2019-10-27 21:36 | NUR ---
PAIN MANAGEMENT: HAD PAGED AT 2048, RETURNED CALL AT THIS TIME. INFORMED HIM PATIENT REQUESTING DILUADID TO BE INCREASED TO 4 MG EVERY 4 HOURS SCHEDULED PER HOME. PATIENT ALSO SOME MEDICATION FOR HEART BURN. ORDERS RECIEVED TO GO AHEAD AND INCREASE THE DILUADID TO 4 MG EVERY 4 HOURS, AND TO GIVE MALLOX 30 MLS EVERY 4-6 HOURS PRN HEART BURN.
[2019-10-27] MEDS ORDERED: MAG HYDROX/AL HYDROX/SIMETH ES 30 ML SUSP UDCUP PO PRN (22:45)
[2019-10-27] MEDS ORDERED: PHARMACY COMMUNICATION MISC SCH (23:45)
[2019-10-28] VITALS: BP 106/65
[2019-10-28 00:16] VITALS: BP 106/65
[2019-10-28] MEDS: SODIUM CHLORIDE 0.9% 1000ML 1,000 ML IV SCH ×2 (00:21→09:24)
[2019-10-28] MEDS: HYDROMORPHONE HCL 2 MG TAB PO SCH ×3 (00:21→08:00)
[2019-10-28] MEDS: ACETAMINOPHEN 325 MG TAB PO PRN (00:51)
[2019-10-28] MEDS: DiphenhydrAMINE HCL 50 MG/ML VIAL IV PRN ×2 (03:03→09:23)
[2019-10-28] MEDS: MORPHINE SULFATE 15 MG TABLET.SA PO SCH ×2 (03:04→09:24)
[2019-10-28 04:16] VITALS: BP 90/53
[2019-10-28] MEDS: ZOSYN 3.375GM+NS 50ML 50 ML IV SCH (04:55)
[2019-10-28 07:30] VITALS: BP 103/73
[2019-10-28] MEDS: INSULIN R PO SS1/2 SQ SCH (07:30)
[2019-10-28] MEDS: ONDANSETRON HCL 4 MG/2 ML VIAL IVP PRN (09:23)
[2019-10-28 11:00] VITALS: BP 117/71
== END 2019-10-28 13:35 | disposition home or self-care (01) | DRG 663 ==
LOC: EDH 09:54 → OBSVTOIN 09:55 → EDHIP 09:55 → 3DH 17:03
PROVIDERS: ADMIT Internal Medicine Hematology & Oncology; ATTEND Internal Medicine Hematology & Oncology
PROC: 30233N1 Transfusion of Nonautologous Red Blood Cells into Peripheral Vein, Percutaneous Approach (ICD-10-PCS; principal; 2019-10-26)
DX: D64.81 Anemia due to antineoplastic chemotherapy (principal); C79.9 Secondary malignant neoplasm of unspecified site; D63.0 Anemia in neoplastic disease; C53.9 Malignant neoplasm of cervix uteri, unspecified; N39.0 Urinary tract infection, site not specified; T45.1X5A Adverse effect of antineoplastic and immunosuppressive drugs, initial encounter; Y92.89 Other specified places as the place of occurrence of the external cause; Z53.29 Procedure and treatment not carried out because of patient's decision for other reasons
CPT/HCPCS: 36415; 36430; 80048; 80053; 81001; 82270; 82948; 83690; 85025; 86850; 86900; 86901; 86922; 87077; 87088; 87186; G0378; J1170; J1200; J2405; J2543; J7030; P9016

== ENCOUNTER 2019-11-01 16:46 | Emergency (ER) | payer MEDICAID ==
[2019-11-01 17:18] LABS: APPEARANCE,URINE Clear (CLEAR); BILIRUBIN,URINE Negative (NEGATIVE); COLOR,URINE Yellow (YELLOW); GLUCOSE, URINE (UA) Negative (NEGATIVE); KETONES,URINE Negative (NEGATIVE); LEUKOCYTE ESTERASE ,URINE Small (NEGATIVE); NITRATE,URINE Negative (NEGATIVE); OCCULT BLOOD,URINE Negative (NEGATIVE); PROTEIN,URINE POS 1+ mg/dL (NEGATIVE); UROBILINOGEN,URINE 0.2 mg/dL (0.2-1.0)
[2019-11-01 17:27] LABS: PH,URINE 8.5 (5.0-8.0)
[2019-11-01 17:40] LABS: BACTERIA,URINE Few /HPF (None Seen); RBC,URINE None Seen /HPF (0-1)
[2019-11-01 17:41] LABS: SQUAMOUS EPITHELIAL CELL,UR 0-2 /HPF (0-2)
[2019-11-01 17:45] LABS: BASOPHILS % (AUTO) 0.2 % (0.0-5.0); EOSINOPHILS % (AUTO) 0.2 % (0.0-8.0); HEMATOCRIT 31.2 % (36-48); LYMPHOCYTES % (AUTO) 17.5 % (21.0-51.0); MEAN CORPUSCULAR HEMOGLOBIN 25.1 pg (27.0-33.0); MEAN CORPUSCULAR HGB CONC 31.4 g/dL (32.0-36.0); MEAN CORPUSCULAR VOLUME 79.8 fL (79-99); MONOCYTES % (AUTO) 7.6 % (3.0-13.0); NEUTROPHILS % (AUTO) 74.1 % (40.0-77.0); PLATELET COUNT (AUTO) 437 K/uL (130-400); RED BLOOD CELL COUNT(AUTO) 3.91 MIL/uL (4.00-5.50); RED CELL DISTRIBUTION WIDTH 21.9 % (11.0-15.5); WHITE BLOOD COUNT (AUTO) 12.7 K/uL (4.8-10.8)
[2019-11-01 17:51] LABS: AMYLASE 22 U/L (25-115); LIPASE 55 U/L (114-286)
[2019-11-01] MEDS ORDERED: CEFTRIAXONE SODIUM 1 GM ONE (17:54)
[2019-11-01 17:57] LABS: CREATININE 0.7 mg/dL (0.5-1.5); POTASSIUM 3.6 mmol/L (3.5-5.1)
[2019-11-01 18:01] LABS: ALBUMIN 1.4 g/dL (3.5-5.0); BILIRUBIN,TOTAL 0.3 mg/dL (0.2-1.0); TOTAL PROTEIN, SERUM 8.4 g/dL (6.0-8.3)
[2019-11-01] MEDS ORDERED: KETOROLAC TROMETHAMINE 30MG/ML ONE (18:11)
== END 2019-11-01 19:12 | disposition home or self-care (01) ==
LOC: EDH 16:46
DX: N39.0 Urinary tract infection, site not specified (principal); C53.9 Malignant neoplasm of cervix uteri, unspecified; E11.9 Type 2 diabetes mellitus without complications; Z90.49 Acquired absence of other specified parts of digestive tract
CPT/HCPCS: 36415; 71045; 80053; 81001; 82150; 82550; 83605; 83690; 84484; 85025; 87040 ×2; 87088; 93005; 96361; 96374; 96375; 99285; J0696; J1885

== ENCOUNTER 2019-12-03 02:49 | Emergency (ER) | payer MEDICAID ==
[2019-12-03 03:20] LABS: BASOPHILS % (AUTO) 0.3 % (0.0-5.0); EOSINOPHILS % (AUTO) 0.5 % (0.0-8.0); HEMATOCRIT 28.6 % (36-48); LYMPHOCYTES % (AUTO) 29.6 % (21.0-51.0); MEAN CORPUSCULAR HEMOGLOBIN 27.7 pg (27.0-33.0); MEAN CORPUSCULAR HGB CONC 33.2 g/dL (32.0-36.0); MEAN CORPUSCULAR VOLUME 83.4 fL (79-99); MONOCYTES % (AUTO) 4.7 % (3.0-13.0); NEUTROPHILS % (AUTO) 64.1 % (40.0-77.0); PLATELET COUNT (AUTO) 37 K/uL (130-400); RED BLOOD CELL COUNT(AUTO) 3.43 MIL/uL (4.00-5.50); RED CELL DISTRIBUTION WIDTH 17.2 % (11.0-15.5); WHITE BLOOD COUNT (AUTO) 3.8 K/uL (4.8-10.8)
[2019-12-03] MEDS ORDERED: HYDROMORPHONE 1 MG/1 ML AMP ONE ×2 (03:20→04:17)
[2019-12-03] MEDS ORDERED: ONDANSETRON HCL 4 MG/2 ML VIAL ONE (03:26)
[2019-12-03 03:45] LABS: CREATININE 0.8 mg/dL (0.5-1.5); POTASSIUM 4.4 mmol/L (3.5-5.1)
[2019-12-03 03:48] LABS: BILIRUBIN,TOTAL 0.4 mg/dL (0.2-1.0); TOTAL PROTEIN, SERUM 8.5 g/dL (6.0-8.3)
[2019-12-03] MEDS ORDERED: FENTANYL 50 MCG/HR PATCH TD ONE (04:16)
== END 2019-12-03 05:26 | disposition home or self-care (01) ==
LOC: EDH 02:49
DX: M54.31 Sciatica, right side (principal); C53.9 Malignant neoplasm of cervix uteri, unspecified; C78.00 Secondary malignant neoplasm of unspecified lung; E11.9 Type 2 diabetes mellitus without complications; Z87.891 Personal history of nicotine dependence; Z90.710 Acquired absence of both cervix and uterus; Z90.49 Acquired absence of other specified parts of digestive tract; Z98.51 Tubal ligation status
CPT/HCPCS: 36415; 80053; 85025; 96374; 96375; 96376; 99284; J1170 ×2; J2405